=== PATIENT | male | born 1995 | race African-American/Black ===

== ENCOUNTER 2017-04-18 07:27 | Inpatient (IN) | payer MEDICAID ==
[~2017-04-18] VITALS: Ht 190.5 cm; Wt 73.5 kg
[2017-04-18 08:56] LABS: BASOPHILS % 0.4 % (0.0-2.0); EOSINOPHILS % 0.4 % (0.0-5.0); HEMATOCRIT. 45.9 % (42.0-52.0); HEMOGLOBIN. 15.9 g/dL (14.0-18.0); LYMPHOCYTES % 18.2 % (20.0-50.0); MEAN CORPUSCULAR HEMOGLOBIN 30.5 pg (28.0-32.0); MEAN CORPUSCULAR VOLUME 88.2 fL (80.0-94.0); MEAN PLATELET VOLUME 8.2 fl (7.4-10.4); MONOCYTES % 8.4 % (2.0-8.0); NEUTROPHILS % 72.6 % (40.0-76.0); PLATELET 189 x1000/uL (130-400); RED CELL DISTRIBUTION WIDTH 12.5 % (11.6-14.6)
[2017-04-18 09:02] LABS: CHLORIDE 103 mEq/L (98-107)
[2017-04-18 09:11] LABS: CARBON DIOXIDE 29 mEq/L (21-32); ETHANOL BLOOD < 10 mg/dL
[2017-04-18] MEDS ORDERED: MAGNESIUM/ALUMINUM HYDROXIDE/SIMETHICONE 30ML UDC PO PRN (10:30)
[2017-04-18] MEDS ORDERED: LORAZEPAM 2MG/ML CPJ IV PRN (10:30)
[2017-04-18] MEDS ORDERED: ZOLPIDEM TARTRATE 5MG TABLET PO PRN (10:30)
[2017-04-18] MEDS ORDERED: CLONIDINE 0.1MG TABLET PO PRN (10:30)
[2017-04-18] MEDS ORDERED: KETOROLAC 15MG/ML VIAL IV PRN (10:30)
[2017-04-18] MEDS ORDERED: ONDANSETRON HCL 4MG/2ML VIAL IV PRN (10:30)
[2017-04-18] MEDS ORDERED: DIPHENHYDRAMINE 50MG/ML VIAL IV PRN (10:30)
[2017-04-18] MEDS ORDERED: DOCUSATE SODIUM 100MG CAPSULE PO PRN (10:30)
[2017-04-18] MEDS ORDERED: ACETAMINOPHEN 325MG TABLET PO PRN (10:30)
[2017-04-18] MEDS ORDERED: IPRATROPIUM/ALBUTEROL 0.5-3(2.5)MG/3ML NEB INH PRN (10:30)
[2017-04-18] MEDS ORDERED: NA PHOS,M-B/NA PHOS,DI-BA ENEMA 118ML PR PRN (10:30)
[2017-04-18] MEDS ORDERED: GUAIFENESIN 200MG/10ML SUGAR FREE UDC PO PRN (10:30)
[2017-04-18 14:25] LABS: CREATINE KINASE 369 IU/L (39-308); CREATINE KINASE MB FRACTION 1.8 ng/mL (0.5-3.6); TROPONIN I < 0.02 ng/mL (0.00-0.04)
[2017-04-18 20:10] VITALS: BP 107/73
[2017-04-18 23:52] LABS: CREATINE KINASE 560 IU/L (39-308); CREATINE KINASE MB FRACTION 6.5 ng/mL (0.5-3.6); TROPONIN I < 0.02 ng/mL (0.00-0.04)
[2017-04-19] VITALS: BP 113/67
[2017-04-19 04:00] VITALS: BP 106/64
[2017-04-19 08:00] VITALS: BP 121/70
[2017-04-19] MEDS ORDERED: PANTOPRAZOLE SODIUM 40 MG/VIAL IV SCH (09:00)
[2017-04-19 10:00] VITALS: BP 118/70
[2017-04-19 11:37] VITALS: BP 108/82
[2017-04-19 12:00] VITALS: BP 108/82
== END 2017-04-19 12:43 | disposition home or self-care (01) | DRG 204 ==
LOC: ER 07:30 → EDBEDREQTM 10:10 → EDBEDREQ 10:10 → ENRESERV 16:48 → 7WST 20:09
PROVIDERS: ADMIT Internal Medicine; ATTEND Internal Medicine
DX: R55 Syncope and collapse (principal); R56.9 Unspecified convulsions; S01.81XA Laceration without foreign body of other part of head, initial encounter; W22.8XXA Striking against or struck by other objects, initial encounter; Y93.89 Activity, other specified; Y92.89 Other specified places as the place of occurrence of the external cause; Y99.8 Other external cause status
CPT/HCPCS: 36415; 70450; 80053; 82550; 82553; 83036; 84484; 85025; 99285; C9113; G0482